=== PATIENT | male | born 1975 | race Caucasian/White ===

== ENCOUNTER 2020-11-29 20:00 | Emergency (ER) | payer OTHER ==
[~2020-11-29] VITALS: Ht 185.4 cm; Wt 60.3 kg
[2020-11-29 20:27] VITALS: BP 132/101
[2020-11-29] MEDS ORDERED: LIDOCAINE 1%-EPI 1:100,000 20 ML VIAL ONE (20:46)
[2020-11-29] MEDS ORDERED: TDAP [DIPH/PERTUSSIS/TET] 0.5 ML VIAL IM ONE ×2 (21:00→21:01)
[2020-11-29] MEDS ORDERED: TRAMADOL HCL 50 MG TABLET PO ONE (21:00)
[2020-11-29] MEDS ORDERED: TRAMADOL HCL 50 MG TABLET ONE (21:01)
[2020-11-29] MEDS ORDERED: CEPH500T PO (21:30)
[2020-11-29] MEDS ORDERED: SULFAMETH/TRIMETH 800/160 MG 1 UDTAB TABLET PO ONE (21:30)
[2020-11-29] MEDS ORDERED: CEPHALEXIN MONOHYDRATE 500 MG CAPSULE PO ONE ×2 (21:30→21:32)
[2020-11-29] MEDS ORDERED: SULF1TAB48 PO (21:30)
[2020-11-29] MEDS ORDERED: SULFAMETH/TRIMETH 800/160 MG 1 UDTAB TABLET ONE (21:32)
--- NOTE | 2020-11-29 21:41 | NUR ---
Patient discharged to home in stable condition. Written and verbal after care instructions given. Patient verbalizes understanding of instruction. Pt ambulatory with a steady gait
== END 2020-11-29 21:42 | disposition home or self-care (01) ==
LOC: ER 20:09
DX: L02.31 Cutaneous abscess of buttock (principal); F17.200 Nicotine dependence, unspecified, uncomplicated; Z79.899 Other long term (current) drug therapy
CPT/HCPCS: 10060; 87070; 87077; 87186; 90471; 90715; 99284; A6407; J3490

== ENCOUNTER 2020-12-04 16:24 | Emergency (ER) | payer OTHER ==
[~2020-12-04] VITALS: Ht 185.4 cm; Wt 70.3 kg
[~2020-12-04 16:24] MED LIST: CEPH500T PO; SULF1TAB48 PO
[2020-12-04 16:40] VITALS: BP 130/89
[2020-12-04] MEDS ORDERED: METR-147 PO (18:39)
[2020-12-04] MEDS ORDERED: CIPR500T5 PO (18:39)
--- NOTE | 2020-12-04 18:52 | NUR ---
Patient discharged to home in stable condition. Written and verbal after care instructions given. Patient verbalizes understanding of instruction.
== END 2020-12-04 18:52 | disposition home or self-care (01) ==
LOC: ER 16:28
DX: L02.31 Cutaneous abscess of buttock (principal); K57.92 Diverticulitis of intestine, part unspecified, without perforation or abscess without bleeding; F17.200 Nicotine dependence, unspecified, uncomplicated; Z79.899 Other long term (current) drug therapy